=== PATIENT | male | born 1950 | race Caucasian/White ===

== ENCOUNTER 2016-04-10 14:48 | Outpatient (CLI) | payer OTHER ==
[~2016-04-10 14:48] MED LIST: AMLODIPINE BES2.5 MG PO; ASPIRIN 81 LOW81 MG PO; ASPIRIN ADULT L81 M1 PO; CARDIZEM LA180 MG PO; COLACE100 MG PO; ENALAPRIL MALEAT5 MG PO; GABAPENTIN100 MG PO; MORPHINE SULFAT15 M2 PO; PERCOCET1 TA2 PO; PRAVASTATIN SOD20 MG PO; XARELTO15 MG PO
--- NOTE | 2016-04-10 15:53 | DIAGNOSTIC IMAGING REPORT ---
PROCEDURE: XR ABDOMEN 2 VIEWS INDICATION: Constipation. History of metastatic prostate carcinoma TECHNIQUE: AP supine and upright views. COMPARISON: None. FINDINGS: There is moderates inspissated stool in the rectum and left colon. There is mild gaseous distention of the small bowel with a few air-fluid levels. No evidence of free air appear Soft tissues are normal. Heterogeneous appearance of osseous structures are compatible with metastatic prostate carcinoma. IMPRESSION: 1. Moderate stool in the left colon with mild of fluid distention of the small bowel right colon. Finding suggest obstipation. 2. Heterogeneous appearance of osseous structures compatible with metastatic prostate carcinoma. 3. Findings discussed with Jessica Childers, PAC.
== END 2016-04-10 23:00 ==
LOC: XR SRH 14:48
DX: K59.03 Drug induced constipation (principal); C61 Malignant neoplasm of prostate